=== PATIENT | female | born 1945 | race Caucasian/White ===

== ENCOUNTER 2020-10-25 06:43 | Day surgery (SDC) | payer MEDICARE, OTHER ==
[~2020-10-25] VITALS: Ht 172.7 cm; Wt 65.9 kg
[2020-10-25 07:11] LABS: BASOPHILS 0.8 % (0-2); HEMATOCRIT 37.3 % (36.0-48.0); HEMOGLOBIN 12.9 g/dL (12-16); IMMATURE GRANULOCYTES 0.2 % (0-5); LYMPHOCYTE ABS# 2.38 10x3/uL (1.18-3.74); MCH 30.3 pg (26.0-34.0); MCHC 34.6 g/dL (31.0-37.0); MCV 87.6 fL (80.0-100.0); MEAN PLATELET VOLUME 8.8 fL (7.4-10.4); MONOCYTES 9.1 % (2-11); NEUTROPHIL ABS# 1.96 10x3/uL (1.56-6.13); NEUTROPHILS 37.9 % (40-80); PLATELET COUNT 250 10x3/uL (130-400); RBC 4.26 10x6/uL (4.00-5.40); RDW 12.1 % (11.5-14.5); WBC 5.2 10x3/uL (4.8-10.8)
[2020-10-25 07:15] LABS: CALCIUM 9.4 mg/dL (8.5-10.1); CARBON DIOXIDE 31.2 mmol/L (21.0-32.0); CREATININE - SERUM 0.9 mg/dL (0.6-1.3); POTASSIUM - SERUM 4.2 mmol/L (3.5-5.1)
[2020-10-25] MEDS ORDERED: LAMICTAL200 M1 PO (07:46)
[2020-10-25] MEDS ORDERED: LEXAPRO20 MG PO (07:46)
[2020-10-25] MEDS ORDERED: COZAAR100 MG PO (07:46)
[2020-10-25 07:51] VITALS: Ht 172.7 cm; Wt 65.9 kg
--- NOTE | 2020-10-25 08:40 | NUR ---
PT IS TOLERATING LIQUIDS. DENIES PAIN/NEEDS AT THIS TIME. WILL CONTINUE TO MONITOR.
--- NOTE | 2020-10-25 08:45 | NUR ---
DC INSTRUCTIONS GIVEN TO PT. STATES UNDERSTANDING. DC'D IV CATH FULLY INTACT. WILL CONTINUE TO MONITOR.
--- NOTE | 2020-10-25 09:01 | NUR ---
PT LEFT UNIT VIA WC AT 0820
--- NOTE | 2020-10-27 07:29 | OP ---
PATIENT NAME: ROME SILVERMAN MEDICAL RECORD: [id number] :49 LOCATION:D.OPS ADMISSION DATE: SURGEON: LUIS ALBERTO WAITE DO DATE OF OPERATION: 10/25/2020 SURGEON: Luis Alberto Waite DO PROCEDURE: EGD with biopsies. INDICATION FOR PROCEDURE: Epigastric pain and GERD. SCOPE: Olympus video gastroscope. MEDICATIONS: Propofol 70 mg IV per Anesthesia. ESTIMATED BLOOD LOSS: Minimal. COMPLICATIONS: None. FINDINGS: Informed consent was given. The patient was made comfortable with the above medication. After reaching an adequate level of sedation by slow IV push, the patient was placed on her left side. The endoscope was advanced under direct visualization through the mouth to the second portion of the duodenum with ease. The esophagus appeared normal down to the GE junction. Cold forceps biopsies were taken from the mid esophagus to rule out the presence of eosinophils. At the GE junction, there was evidence of LA class A reflux-induced esophagitis without ulcerations or other abnormalities. The endoscope was advanced beyond the GE junction into the stomach and retroflexed view of the cardia and fundus, which appeared normal. The body of the stomach as well as the antrum and prepyloric regions also appeared normal. Cold forceps biopsies were taken from the antrum and incisura to submit for histopathology and to rule out the presence of H. pylori. The endoscope was advanced beyond the pylorus into the duodenum, which appeared normal to the second portion. Cold forceps biopsies were taken from the duodenal bulb and second portion to submit for histopathology. The endoscope was withdrawn from the patient. The patient tolerated the procedure well and there were no complications. IMPRESSION: 1. LA class A reflux-induced esophagitis. 2. Otherwise, normal upper endoscopy. PLAN AND RECOMMENDATIONS: 1. Discharge home when recovery parameters are met. 2. Follow up biopsy specimen results. 3. GERD diet and reflux precautions. 4. Continue current medications including as needed Nexium 20 mg daily, which sounds to be controlling the patient's reflux symptoms very well. 5. Notify GI clinic if symptoms worsen or fail to improve. 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
== END 2020-10-25 08:57 | disposition home or self-care (01) ==
LOC: D.OPS 06:43
PROVIDERS: Anesthesiology; ATTEND Internal Medicine Gastroenterology
DX: R10.13 Epigastric pain (principal); K21.00 Gastro-esophageal reflux disease with esophagitis, without bleeding